=== PATIENT | female | born 1970 | race Two or more races ===

== ENCOUNTER 2022-03-09 16:39 | Emergency (ER) | payer OTHER ==
[~2022-03-09] VITALS: Ht 160 cm; Wt 77.0 kg
[2022-03-09] MEDS ORDERED: IBUPROFEN 400MG TABLET PO ONE (18:45)
[2022-03-09] MEDS ORDERED: IBUP-2028 MT (19:33)
[2022-03-09 20:14] VITALS: BP 112/71
== END 2022-03-09 20:18 | disposition home or self-care (01) ==
LOC: ER 16:39
DX: S63.592A Other specified sprain of left wrist, initial encounter (principal); X58.XXXA Exposure to other specified factors, initial encounter; Y93.89 Activity, other specified; Y92.89 Other specified places as the place of occurrence of the external cause; Y99.8 Other external cause status; E11.9 Type 2 diabetes mellitus without complications; I10 Essential (primary) hypertension
CPT/HCPCS: 29125; 73110; 99283

== ENCOUNTER 2023-05-03 14:54 | Emergency (ER) | payer MEDICAID, OTHER ==
[~2023-05-03] VITALS: Ht 170.2 cm; Wt 68.0 kg
[~2023-05-03 14:54] MED LIST: IBUP-2028 MT
[2023-05-03 15:03] VITALS: O2SAT 97
[2023-05-03] MEDS ORDERED: TETRACAINE 0.5% OPHTH DROPS 4ML RIGHTEYE ONE (17:15)
[2023-05-03] MEDS ORDERED: FLUORESCEIN SODIUM 1MG/STRIP RIGHTEYE ONE (17:15)
[2023-05-03] MEDS ORDERED: POLY15DR31 RIGHTEYE (18:13)
[2023-05-03] MEDS ORDERED: ERYT1OIN6 RIGHTEYE (18:13)
[2023-05-03 18:32] VITALS: BP 123/78; PULSE 76; RESP 20; TEMP 98.6
== END 2023-05-03 18:40 | disposition home or self-care (01) ==
LOC: ER 14:54
DX: H16.201 Unspecified keratoconjunctivitis, right eye (principal); E11.9 Type 2 diabetes mellitus without complications; I10 Essential (primary) hypertension
CPT/HCPCS: 99283